=== PATIENT | female | born 1990 | race Caucasian/White ===

== ENCOUNTER 2018-04-18 15:29 | Emergency (ER) | payer OTHER ==
[~2018-04-18] VITALS: Ht 175.3 cm; Wt 59.0 kg
[2018-04-18] MEDS ORDERED: SYNTHROID100 MCG (15:57)
== END 2018-04-18 18:31 | disposition home or self-care (01) ==
LOC: ER 15:29
DX: R19.7 Diarrhea, unspecified (principal); E86.0 Dehydration; E03.8 Other specified hypothyroidism

== ENCOUNTER → 2018-05-15 | Emergency (ER) | payer OTHER ==
[~2018-05-15] VITALS: Ht 177.8 cm; Wt 54.0 kg
[~2018-05-15] MED LIST: SYNTHROID100 MCG
== END | disposition home or self-care (01) ==
LOC: ER 18:35
DX: N39.0 Urinary tract infection, site not specified (principal)